=== PATIENT | female | born 1960 | race Caucasian/White ===

== ENCOUNTER 2016-07-02 14:17 | Emergency (ER) | payer SELFPAY ==
[2016-07-02 14:25] VITALS: BP 150/67; PULSE 77; TEMP 97.8; BMI 28.8
--- NOTE | 2016-07-02 15:02 | EDPRACDOC ---
- General Information Chief Complaint: Flu-Like Symptoms Stated Complaint: COUGHING SINUS INFECTION ACHING ALL OVER Time Seen by Provider: 07/02/16 14:56 Information Source: Patient Mode Of Arrival: Car Home Medications: Home Medications Methimazole 5 mg PO DAILY 11/12/15 Phenazopyridine [Pyridium] 100 mg PO TID #14 tab 11/12/15 Azithromycin [Zithromax] 0 mg PO DAILY #6 tablet 07/02/16 Ibuprofen Tablet [Motrin] 800 mg PO TID PRN #30 tab 07/02/16 Promethazine Dextromethorphan [Phenergan DM] 5 ml PO Q6 PRN #120 ml 07/02/16 Allergies/Adverse Reactions: Allergies Allergy/AdvReac Type Severity Reaction Status Date / Time Penicillins Allergy Edema-Gener Verified 11/12/15 05:37 alized - History of Present Illness Onset: 2 weeks HPI: PT COMPLAINS OF COUGH, NASAL CONGESTION, CHEST CONGESTION, MYALGIAS X 2 WEEKS, NO FEVER OR CHILLS, NO N/V/D. Current Symptoms: Reports: Cough, Headache, Nasal Symptoms, Myalgia Shortness of Breath: None Cough: Reports: Productive Rhinorrhea: Reports: Clear Ear Symptoms: Reports: None Fever Severity/Quality: Reports: no fever Oral Intake: Normal Urinary Output: Normal Relevant History of: None Associated Signs & Symptoms:: Reports: Cough, Headache, Nasal Symptoms, Myalgia ED Past Medical History - History Reviewed Yes Nurses notes reviewed and agree except as marked - Patient Medical History Respiratory History: Reports: Asthma, COPD Psychological History: Denies: Depression Systemic History: Reports: Cancer (BRAIN) Additional Past Medical History: LEGAL BLINDNESS Surgical History: Reports: Other (CRANIOTOMY AND RSXN) - Social Medical History Smoking Status: Heavy tobacco smoker (5 or more cigarettes/day or daily pipe/ cigar) EDM Review of Systems - Review of Systems Constitutional: negative: Chills, Fever Eyes: negative: Blurred Vision, Double Vision Ears: negative: Drainage Throat: Pain Nose: Congestion, Discharge Respiratory: Cough, Wheezing. negative: Shortness of Breath Gastrointestinal: negative: Diarrhea, Nausea, Vomiting Neurological: negative: Headache Musculoskeletal: No Symptoms Reported Integumentary: No Symptoms Reported - Physical Exam Constitutional: Alert (Awake), No apparent distress Oriented to: Time, Person, Place Last recorded Vital Signs: Last Vital Signs Temp 97.8 F 07/02/16 14:25 Pulse 77 07/02/16 14:25 Resp 24 07/02/16 14:25 BP 150/67 07/02/16 14:25 Pulse Ox 94 07/02/16 14:25 Oxygen Pulse Oxygen Saturation 94 O2 Device Room Air Oxygen Flow Rate Fraction of Inspired Oxygen ( FIO2) - HEENT Head: Normal ( normocephalic) Eye Exam: Normal (PERRL, EOMI, Sclera white) Oropharynx: Normal (Pharynx:Moist without exudate,Gums-no swelling) Tympanic Membrane: Dull ENT EAC: Normal TMJ: Normal Nose: No Symptoms Reported (septum midline) Neck: Normal (FROM, trachea at midline) - Respiratory/Cardiovascular Respiratory: Wheezes. negative: Accessory Muscle Use, Retractions Cardiovascular: Normal - Integumentary Skin: Normal, Warm, Dry Lymphatics: Normal (no adenopathy) - Neurologic Memory Impaired: Normal Motor Function: Normal (Normal tone, Pulses 2+ No cyanosis or edema, FROM) Cranial Nerve: Normal (CN II-X11 intact sensation, strength 5/5) Cerebellar: Normal Mood Description: Normal Perception: Normal - Differential Diagnosis Bronchitis, Pneumonia, Sinusitis Decision Time to Discharge: 15:02 - Departure Disposition: Home Condition: Stable Final Diagnosis: Acute bronchitis, Tobacco abuse Instructions: Acute Bronchitis (ED) Education/Counseling Given To: Patient Education/Counseling Given Regarding: Diagnosis, Treatment, Prognosis, Follow Up Referrals: Brianda Cisneros MD [Staff Physician] - One Week Prescriptions: Azithromycin [Zithromax] 0 mg PO DAILY #6 tablet Ibuprofen Tablet [Motrin] 800 mg PO TID PRN #30 tab PRN Reason: Pain Promethazine Dextromethorphan [Phenergan DM] 5 ml PO Q6 PRN #120 ml PRN Reason: Cough Additional Instructions: Rest, drink plenty of fluids, use Tylenol every 4 hours and Motrin every 6 hours as needed for pain or fever, return to the ED for any worsening symptoms or concerns. PLEASE STOP SMOKING
[2016-07-02] MEDS ORDERED: IBUPROFEN 800 MG TAB PO ONE (15:03)
== END 2016-07-02 15:40 | disposition home or self-care (01) ==
LOC: EDMC 14:17
DX: J20.9 Acute bronchitis, unspecified (principal); F17.210 Nicotine dependence, cigarettes, uncomplicated
CPT/HCPCS: 99282; J3490